=== PATIENT | female | born 1985 | race Hispanic/Latino ===

== ENCOUNTER 2017-03-14 17:43 | Emergency (ER) | payer BC, OTHER ==
[~2017-03-14] VITALS: Ht 162.6 cm; Wt 70.3 kg
[~2017-03-14 17:43] MED LIST: IBUPROFEN800 MG PO; NORCO 5-325 TA1 EACH PO; PERCOCET 5-3251 EACH PO
== END 2017-03-14 19:51 | disposition left against medical advice (07) ==
LOC: ED 17:43
DX: Z53.21 Procedure and treatment not carried out due to patient leaving prior to being seen by health care provider (principal)

== ENCOUNTER 2022-09-20 12:38 | Emergency (ER) | payer OTHER ==
[~2022-09-20] VITALS: Ht 162.6 cm; Wt 80.1 kg
--- OUTSIDE RECORDS SUMMARY | 2022-09-20 12:47 | XMS ---
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 Rambo VISIT COUNT (12 MO.) 1 ROLANDO Patel TOTAL 1 NOTE: Visits indicate total known visits. ED/UCC VISIT TRACKING (12 MO.) 09/20/2022 12:[address] [facility] TYPE: Emergency COMPLAINT: - COLD SYMPTOMS INPATIENT VISIT TRACKING (12 MO.) No inpatient visits to display in this time frame [email or web address]
[2022-09-20 14:52] VITALS: BP 126/89
== END 2022-09-20 14:53 | disposition home or self-care (01) ==
LOC: ED 12:38
DX: J06.9 Acute upper respiratory infection, unspecified (principal); Z20.822 Contact with and (suspected) exposure to COVID-19
CPT/HCPCS: 71045; 87502; 99283 25; C9803; U0002